=== PATIENT | female | born 1950 | race Caucasian/White ===

== ENCOUNTER 2022-03-07 10:03 | Emergency (ER) | payer MEDICARE ==
[~2022-03-07] VITALS: Ht 154.9 cm; Wt 47.7 kg
[2022-03-07] MEDS ORDERED: NORT25CA2 PO (10:21)
[2022-03-07] MEDS ORDERED: METF-877 PO (10:21)
[2022-03-07] MEDS ORDERED: NORT75CA2 PO (10:21)
[2022-03-07] MEDS ORDERED: ONDA4TAB6 PO (10:21)
[2022-03-07] MEDS ORDERED: ACET1TAB55 PO (10:21)
[2022-03-07] MEDS ORDERED: TRAM50TA2 PO (10:21)
[2022-03-07] MEDS ORDERED: ELIQ2.5T PO (10:21)
[2022-03-07] MEDS ORDERED: DICL1GEL3 TOP (10:22)
[2022-03-07] MEDS ORDERED: NS 1,000 ML IV ONE (11:30)
[2022-03-07 11:54] LABS: BASO % 0.3 % (0.0-1.0); EOS # 0.1 10^3/uL (0.0-0.5); EOS % 1.1 % (0.0-3.0); HEMATOCRIT 38.9 % (36.0-47.0); HEMOGLOBIN 12.2 g/dl (12.0-15.5); LYMPH # 1.5 10^3/uL (1.5-5.0); LYMPH % 12.1 % (24.0-44.0); MEAN CORPUSCULAR HEMOGLOBIN 27.3 pg (27.0-33.0); MEAN CORPUSCULAR HGB CONC 31.4 g/dl (32.0-36.5); MONO # 0.9 10^3/uL (0.0-0.8); MONO % 7.2 % (2.0-8.0); NEUTROPHILS # 9.7 10^3/uL (1.5-8.5); NEUTROPHILS % 78.8 % (36.0-66.0); PLATELET COUNT, AUTOMATED 333 10^3/uL (150-450); RED BLOOD COUNT 4.47 10^6/uL (4.00-5.40); WHITE BLOOD COUNT 12.3 10^3/uL (4.0-10.0)
[2022-03-07 12:25] LABS: RSV AMPLIFICATION NEGATIVE (NEGATIVE)
[2022-03-07 12:29] LABS: ALBUMIN 2.9 GM/DL (3.2-5.2); BILIRUBIN,TOTAL 0.4 MG/DL (0.2-1.0); CALCIUM LEVEL 10.6 MG/DL (8.8-10.2); CREATININE FOR GFR 1.22 MG/DL (0.55-1.30); GLOMERULAR FILTRATION RATE 46.1 (>39); POTASSIUM SERUM 3.9 MEQ/L (3.5-5.1); TOTAL PROTEIN 7.1 GM/DL (6.4-8.2)
[2022-03-07] MEDS ORDERED: SODIUM CHLORIDE 0.9% INJ 10 ML SYR IV PRN (12:55)
[2022-03-07 14:17] VITALS: BP 143/72
== END 2022-03-07 14:40 | disposition home or self-care (01) ==
LOC: M ED 10:03
DX: E86.0 Dehydration (principal); R19.7 Diarrhea, unspecified; E11.9 Type 2 diabetes mellitus without complications; I10 Essential (primary) hypertension; E78.5 Hyperlipidemia, unspecified; M79.7 Fibromyalgia; C25.9 Malignant neoplasm of pancreas, unspecified; Z85.3 Personal history of malignant neoplasm of breast; Z79.01 Long term (current) use of anticoagulants; Z79.899 Other long term (current) drug therapy
CPT/HCPCS: 80053; 85025; 87631; 96361; 96374; 99284; J1642